=== PATIENT | female | born 1975 | race Caucasian/White ===

== ENCOUNTER 2017-07-21 10:38 | Emergency (ER) | payer OTHER ==
[2017-07-21 10:53] VITALS: BP 100/63; PULSE 75; TEMP 98.9; BMI 23.3
[2017-07-21] MEDS ORDERED: IBUPROFEN 400 MG TABLET (FP) PO ONE ×2 (12:59→13:08)
--- NOTE | 2017-07-21 12:59 | PDOC ---
History of Present Illness - General Chief Complaint: Injury Stated Complaint: RT HAND/FINGER INJURY Time Seen by Provider: 07/21/17 12:45 History Source: Patient Exam Limitations: No Limitations - History of Present Illness Initial Comments: 07/21/17 13:36 Patient is a 41-year-old female with no past medical history, who presents to the emergency department today complaining of right hand pain. Patient states she was lifting a laundry basket when she slipped and felt her thumb bent backwards. She states that she has a lot of swelling in her thumb and it is painful to the touch. Denies numbness and tingling in the fingers. Patient is right-hand dominant. Past History - Travel Traveled outside of the country in the last 30 days: No Close contact w/someone who was outside of country & ill: No - Past Medical History Allergies/Adverse Reactions: Allergies Allergy/AdvReac Type Severity Reaction Status Date / Time No Known Allergies Allergy Verified 07/21/17 10:46 Home Medications: Ambulatory Orders NK [No Known Home Medication] 07/21/17 COPD: No - Surgical History Abdominal Surgery: Yes (HERNIA) - Suicide/Smoking/Psychosocial Hx Smoking History: Never smoked Have you smoked in the past 12 months: No Information on smoking cessation initiated: No Hx Alcohol Use: No Drug/Substance Use Hx: No Substance Use Type: None Review of Systems - Review of Systems Able to Perform ROS?: Yes Comments:: 07/21/17 13:38 CONSTITUTIONAL: Absent: fever, chills, diaphoresis, generalized weakness, malaise, loss of appetite HEENT: Absent: rhinorrhea, nasal congestion, throat pain, throat swelling, difficulty swallowing, mouth swelling, ear pain, eye pain, visual Changes CARDIOVASCULAR: Absent: chest pain, loss of consciousness, palpitations, irregular heart rate, peripheral edema RESPIRATORY: Absent: cough, shortness of breath, dyspnea with exertion, orthopnea, wheezing, stridor, hemoptysis GASTROINTESTINAL: Absent: abdominal pain, abdominal distension, nausea, vomiting, diarrhea, constipation, melena, hematochezia GENITOURINARY: Absent: dysuria, frequency, urgency, hesitancy, hematuria, flank pain, genital pain MUSCULOSKELETAL: Present: swelling/pain to R thumb/thenar eminence. Absent: arthralgia, SKIN: Absent: rash, itching, pallor HEMATOLOGIC/IMMUNOLOGIC: Absent: easy bleeding, easy bruising, lymphadenopathy, frequent infections ENDOCRINE: Absent: unexplained weight gain, unexplained weight loss, heat intolerance, cold intolerance NEUROLOGIC: Absent: headache, focal weakness or paresthesias, dizziness, unsteady gait, seizure, mental status changes, bladder or bowel incontinence PSYCHIATRIC: Absent: anxiety, depression, suicidal or homicidal ideation, hallucinations. Is the patient limited Amharic proficient: No *Physical Exam - Vital Signs Last Vital Signs Temp Pulse Resp BP Pulse Ox 98.9 F 75 18 100/63 100 07/21/17 10:47 07/21/17 10:47 07/21/17 10:47 07/21/17 10:47 07/21/17 10:47 - Physical Exam Comments: 07/21/17 13:39 GENERAL: The patient is awake, alert, and fully oriented, in no acute distress. HEAD: Normal with no signs of trauma. EYES: Pupils equal, round and reactive to light, extraocular movements intact, sclera anicteric, conjunctiva clear. EXTREMITIES: Swelling to the R thenar eminence. TTP at the base of the first metacarple. Normal range of motion at all other joints. NEUROLOGICAL: Normal speech, normal gait. PSYCH: Normal mood, normal affect. SKIN: Warm, Dry, normal turgor, no rashes or lesions noted. Medical Decision Making - Medical Decision Making 07/21/17 13:40 Patient is a 41-year-old female no past medical history who presents emergency Department with 1 day of hand swelling. Most likely a muscular injury however will rule out fracture at this time. Ibuprofen for pain. Reevaluate 07/21/17 13:58 x-ray is negative. Will d/c home at this time with a finger splint. Most likely game keepers thumb. Will give ortho referral. Pt. understands all d.c instructions and all questions were answered at this time. *DC/Admit/Observation/Transfer Diagnosis at time of Disposition: Gamekeeper's thumb of right hand Qualifiers: Encounter type: initial encounter Qualified Code(s): S53.31XA - Traumatic rupture of right ulnar collateral ligament, initial encounter - Discharge Dispostion Disposition: HOME Condition at time of disposition: Good Admit: No - Referrals Referrals: Eyad Thakkar MD [Staff Physician] - - Patient Instructions Printed Discharge Instructions: DI for Ulnar Collateral Ligament Sprain of Thumb Additional Instructions: Te torciste el pulgar. Por favor, use la frula que se puso harrison las pr ximas 24-72 horas. Puede congelar la mano para ayudar a reducir la hinchazn. Por favor, tome ibuprofeno 800 mg 3 veces al da. Mantenga la mano elevada para reducir la hinchazn. Por favor chevy un seguimiento con ortopedia esta semana. Regrese al servicio de urgencias si tiene un empeoramiento del dolor, entumecimiento y hormigueo, debilidad de la mano o cualquier cambio en wang s ntomas. You sprained her thumb. Please wear the splint that was put on for the next 24- 72 hours. You may ice the hand to help reduce swelling. Please take ibuprofen 800 mg 3 times a day. Keep hand elevated to reduce swelling. Please follow-up with orthopedics this week. Return to the emergency department if you have worsening pain, numbness and tingling, weakness of your hand, or any changes in your symptoms. Print Language: LAO - Post Discharge Activity Forms/Work/School Notes: Back to Work
== END 2017-07-21 14:15 | disposition home or self-care (01) ==
LOC: JER 10:38 → JERFT 10:38
PROC: 2W3JX1Z Immobilization of Right Finger using Splint (ICD-10-PCS; principal; 2017-07-21)
DX: S63.418A Traumatic rupture of collateral ligament of other finger at metacarpophalangeal and interphalangeal joint, initial encounter (principal); W01.0XXA Fall on same level from slipping, tripping and stumbling without subsequent striking against object, initial encounter; Y93.E2 Activity, laundry; Y92.89 Other specified places as the place of occurrence of the external cause; Y99.8 Other external cause status
CPT/HCPCS: 29125; 73110-TC-RT; 73130-TC-RT; 99281-25

== ENCOUNTER 2018-04-10 08:26 | Emergency (ER) | payer OTHER ==
[2018-04-10 08:39] VITALS: BMI 21.6
--- NOTE | 2018-04-10 08:41 | PDOC ---
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 hstory of inguinal hernia with mesh repair in [facility] in 2013,2014,2016. 2 nights of sharp bilateral lower abdominal pain that radiates down to the R thigh pain rated 9/10 described as stabbing. pain left her unable to sleep exacerbated by walking. LNMP: 2 weeks. No dysuria, no vomiting, diarrhea, constipation + 1-[address] interpreter #[id number] <Mikaela Sanchez - Last Filed: 04/10/18 16:08> <Kyra Anderson - Last Filed: 04/10/18 16:34> - General Chief Complaint: Pain, Acute Stated Complaint: ABD PAIN Time Seen by Provider: 04/10/18 08:38 Past History - Past Medical History COPD: No - Surgical History Abdominal Surgery: Yes (HERNIA) - Suicide/Smoking/Psychosocial Hx Smoking History: Never smoked Have you smoked in the past 12 months: No Hx Alcohol Use: No Drug/Substance Use Hx: No Substance Use Type: None <Mikaela Sanchez - Last Filed: 04/10/18 16:08> <Kyra Anderosn - Last Filed: 04/10/18 16:34> - Past Medical History Allergies/Adverse Reactions: Allergies Allergy/AdvReac Type Severity Reaction Status Date / Time No Known Allergies Allergy Verified 04/10/18 08:30 Home Medications: Ambulatory Orders Ibuprofen 800 mg PO TID #30 tablet 07/21/17 *Physical Exam - Vital Signs Last Vital Signs Temp Pulse Resp BP Pulse Ox 98 F 78 16 99/67 100 04/10/18 08:27 04/10/18 08:27 04/10/18 08:27 04/10/18 08:27 04/10/18 08:27 <Mikaela Sanchez - Last Filed: 04/10/18 16:08> - Vital Signs Last Vital Signs Temp Pulse Resp BP Pulse Ox 98 F 78 16 99/67 100 04/10/18 08:27 04/10/18 08:27 04/10/18 08:27 04/10/18 08:27 04/10/18 10:58 <Kyra Anderson - Last Filed: 04/10/18 16:34> ED Treatment Course - LABORATORY CBC & Chemistry Diagram: 04/10/18 09:02 04/10/18 09:02 <Mikaela Sanchez - Last Filed: 04/10/18 16:08> - LABORATORY CBC & Chemistry Diagram: 04/10/18 09:02 04/10/18 09:02 - ADDITIONAL ORDERS Additional order review: Laboratory Results 04/10/18 04/10/18 04/10/18 10:44 09:02 09:02 PT with INR INR PTT (Actin FS) Sodium 141 Potassium 4.6 Chloride 109 H Carbon Dioxide 29 Anion Gap 4 L BUN 7 Creatinine 0.5 L Creat Clearance w eGFR > 60 Random Glucose 83 Calcium 9.2 Total Bilirubin 0.6 AST 10 L ALT 16 Alkaline Phosphatase 49 Total Protein 7.8 Albumin 3.8 Urine Color Urine Appearance Urine pH Ur Specific [place] Urine Protein Urine Glucose (UA) Urine Ketones Urine Blood Urine Nitrite Urine Bilirubin Urine Urobilinogen Ur Leukocyte Esterase Blood Type O POSITIVE O POSITIVE Antibody Screen Negative 04/10/18 04/10/18 09:02 09:02 PT with INR 13.20 H INR 1.12 H PTT (Actin FS) 30.2 Sodium Potassium Chloride Carbon Dioxide Anion Gap BUN Creatinine Creat Clearance w eGFR Random Glucose Calcium Total Bilirubin AST ALT Alkaline Phosphatase Total Protein Albumin Urine Color Colorless Urine Appearance Clear Urine pH 8.0 Ur Specific [place] 1.001 L Urine Protein Negative Urine Glucose (UA) Negative Urine Ketones Negative Urine Blood Negative Urine Nitrite Negative Urine Bilirubin Negative Urine Urobilinogen Negative Ur Leukocyte Esterase Negative Blood Type Antibody Screen 04/10/18 09:02 RBC 4.56 MCV 84.2 MCHC 31.4 L RDW 14.5 MPV 9.3 Neutrophils % 79.4 Lymphocytes % 13.6 Monocytes % 5.4 Eosinophils % 1.3 Basophils % 0.3 - RADIOLOGY Radiology Studies Ordered: Category Date Time Status TRANSVAGINAL ULTRASOUND US [US] Stat Ultrasound 04/10/18 13:16 Completed - Medications Given in the ED: ED Medications Discontinued Medications Generic Name Dose Route Start Last Admin Trade Name Freq PRN Reason Stop Dose Admin Acetaminophen 1,000 mg 04/10/18 10:03 04/10/18 10:07 Ofirmev Injection - IVPB 04/10/18 10:04 1,000 mg ONCE ONE Administration Ondansetron HCl 4 mg 04/10/18 09:09 04/10/18 09:21 Zofran Injection IVPUSH 04/10/18 09:10 4 mg ONCE ONE Administration <Kyra Anderson - Last Filed: 04/10/18 16:34> Medical Decision Making - Medical Decision Making 04/10/18 15:[address]: large uterus with fibroids TVUS ordered <Mikaela Sanchez - Last Filed: 04/10/18 16:08> *DC/Admit/Observation/Transfer - Discharge Dispostion Decision to Admit order: No <Mikaela Sanchez - Last Filed: 04/10/18 16:08> <JustinKyra - Last Filed: 04/10/18 16:34> Diagnosis at time of Disposition: Abdominal pain, Fibroid - Discharge Dispostion Disposition: HOME Condition at time of disposition: Stable - Referrals Referrals: Luis Kingston MD [Staff Physician] - Angel Mayers [Primary Care Provider] - - Patient Instructions Additional Instructions: You were seen in the ED for complaints of abdominal pain. In the ED you were evaluated with labwork and imaging. Your results were significant for uterine fibroids. There does not appear to be an acute need for immediate hospitalization. You are advised to follow up with your primary care physician within 1 week. You were given a referral to [facility] [employer], please follow up within 1 week. Take over the counter ibuprofen as needed for pain relief. Return to the ED immediately if you experience worsening abdominal pain, vaginal discharge, nonmenstrual vaginal bleeding. fevers, nausea, vomiting, diarrhea, constipation, dysuria or blood in the urine or stool. Usted fue visto en el servicio de urgencias por quejas de dolor abdominal. En el servicio de urgencias se le evalu con trabajo de laboratorio e imgenes. Patricia resultados fueron significativos para los fibromas uterinos. No parece venita johnny necesidad aguda de hospitalizacin inmediata. Se recomienda realizar un seguimiento con thomas mdico de atencin primaria dentro de johnny semana. Recibi johnny referencia para un obstetra / gineclogo, chevy un seguimiento dentro de johnny semana. Nickerson el control del ibuprofeno segn sea necesario para aliviar el dolor. Regrese a la iza de urgencias inmediatamente si experimenta un empeoramiento del dolor abdominal, flujo vaginal, sangrado vaginal no menstrual. fiebre, nuseas, vmitos, diarrea, estreimiento, disuria o luca en la orina o las heces. - Post Discharge Activity
[2018-04-10] MEDS ORDERED: ONDANSETRON 4 MG/2 ML VIAL IVPUSH ONE (09:09)
[2018-04-10] MEDS ORDERED: ONDANSETRON 4 MG/2 ML VIAL ONE (09:13)
[2018-04-10] MEDS ORDERED: SODIUM CHLORIDE 1,000 ML IV SCH (09:15)
[2018-04-10 09:23] LABS: URINE APPEARANCE CLEAR; URINE BILIRUBIN NEGATIVE (<2.0 mg/dL); URINE COLOR COLORLESS; URINE GLUCOSE (UA) NEGATIVE (NEGATIVE); URINE KETONE NEGATIVE (NEGATIVE); URINE LEUK ESTERASE NEGATIVE (NEGATIVE); URINE NITRITE NEGATIVE (NEGATIVE); URINE PROTEIN NEGATIVE (NEGATIVE); URINE UROBILINOGEN NEGATIVE mg/dL (0.2-1.0)
[2018-04-10 09:25] LABS: BASO % 0.3 % (0-2.0); EOS % 1.3 % (0-4.5); HEMATOCRIT 38.4 % (32.4-45.2); HEMOGLOBIN 12.1 GM/dL (10.7-15.3); LYMPH % 13.6 % (8-40); MCH 26.4 pg (25.7-33.7); MCHC 31.4 g/dl (32.0-36.0); MEAN CELL VOLUME 84.2 fl (80-96); MEAN PLT VOLUME 9.3 fl (7.5-11.1); MONO % 5.4 % (3.8-10.2); NEUT % 79.4 % (42.8-82.8); PLATELET COUNT 199 K/MM3 (134-434); RBC 4.56 M/mm3 (3.60-5.2); RDW 14.5 % (11.6-15.6); WHITE BLOOD COUNT 9.3 K/mm3 (4.0-10.0)
[2018-04-10 09:30] LABS: INR 1.12 (0.83-1.09); PROTHROMBIN TIME (PATIENT) 13.2 SEC (9.7-13.0)
[2018-04-10 09:32] LABS: ACTIVATED PTT 30.2 SECONDS (25.2-36.5)
[2018-04-10 09:41] LABS: ALBUMIN 3.8 g/dl (3.4-5.0); ALK PHOS 49 U/L (45-117); ANION GAP 4 MMOL/L (8-16); BILIRUBIN,TOTAL 0.6 mg/dL (0.2-1); BLOOD UREA NITROGEN 7 mg/dL (7-18); CALCIUM 9.2 mg/dL (8.5-10.1); CHLORIDE 109 mmol/L (98-107); CO2 29 mmol/L (21-32); CREATININE 0.5 mg/dL (0.55-1.3); GLUCOSE,RANDOM 83 mg/dL (74-106); POTASSIUM 4.6 mmol/L (3.5-5.1); SGOT/AST 10 U/L (15-37); SGPT/ALT 16 U/L (13-61); SODIUM 141 mmol/L (136-145); TOT PROT 7.8 g/dl (6.4-8.2)
[2018-04-10] MEDS ORDERED: ACETAMINOPHEN 1000 MG/100 ML VIAL (NON FORMULARY) IVPB ONE (10:03)
[2018-04-10] MEDS ORDERED: ACETAMINOPHEN INJECTION 100 ML IVPB ONE (10:05)
--- NOTE | 2018-04-10 11:03 | PDOC ---
Attending Attestation - Resident Resident Name: Mikaela Sanchez - ED Attending Attestation I have performed the following: I have examined & evaluated the patient, The case was reviewed & discussed with the resident, I agree w/resident's findings & plan, Exceptions are as noted - HPI HPI: 04/10/18 11:01 42yo F with h/o hernia repair in [place] her with c/o lower abd pain near area of her scar. reports nausea, no vomiting. no f/c no urinary complaints. no mod factors. no change to bm. no f/c. pain moderate. when she stands she thought she sees a bulge. pt states pain started 2 days ago, got stronger last night. 04/10/18 11:24 - Physicial Exam PE: 04/10/18 11:02 awake alert lungs clear bilaterally heart rrr no mrg abd soft, mild periincisional scar ttp. no plap hernia. no noted bulge. ext wwp no edema no calf tenderness. - Medical Decision Making 04/10/18 11:02 differential uti pyelo appy, recurrent hernia.plan ct a/p labs ua 04/10/18 11:22 04/10/18 16:34 tvus with fibroids. labs unremarkable. ct no hernia. 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 ,
[2018-04-10 16:48] VITALS: BP 103/58; PULSE 63; TEMP 98
== END 2018-04-10 16:49 | disposition home or self-care (01) ==
LOC: JER 08:26
PROC: 3E033NZ Introduction of Analgesics, Hypnotics, Sedatives into Peripheral Vein, Percutaneous Approach (ICD-10-PCS; principal; 2018-04-10)
PROC: 3E033GC Introduction of Other Therapeutic Substance into Peripheral Vein, Percutaneous Approach (ICD-10-PCS; 2018-04-10)
DX: R10.9 Unspecified abdominal pain (principal); D21.9 Benign neoplasm of connective and other soft tissue, unspecified
CPT/HCPCS: 36415; 74177-TC; 76830-TC; 80053; 81003; 85025; 85610; 85730; 86850; 86900; 86901; 87086; 96374; 96375; 99284-25; J0131; J7030

== ENCOUNTER 2018-10-22 10:39 | Emergency (ER) | payer OTHER ==
[2018-10-22 11:00] VITALS: BP 109/66; PULSE 81; TEMP 98.1; BMI 22.6
--- NOTE | 2018-10-22 12:40 | PDOC ---
History of Present Illness - General Chief Complaint: Pain, Acute Stated Complaint: LT. KNEE PAIN Time Seen by Provider: 10/22/18 12:13 History Source: Patient Exam Limitations: No Limitations - History of Present Illness Occurred: reports: yesterday Severity: reports: mild, moderate Pain Location: reports: lower extremity (left knww ) Method of Injury: Yes: unknown Modifying Factors: improves with: cold therapy, pain medication Loss of Consciousness: no loss of consciousness Associated Symptoms (Fall): denies symptoms Past History - Travel Traveled outside of the country in the last 30 days: No Close contact w/someone who was outside of country & ill: No - Past Medical History Allergies/Adverse Reactions: Allergies Allergy/AdvReac Type Severity Reaction Status Date / Time No Known Allergies Allergy Verified 10/22/18 10:57 Home Medications: Ambulatory Orders Naproxen [Naprosyn -] 500 mg PO BID #30 tablet 10/22/18 COPD: No - Surgical History Abdominal Surgery: Yes (HERNIA) - Reproductive History Therapeutic (s) & number: No - Immunization History Immunization Up to Date: Yes - Suicide/Smoking/Psychosocial Hx Smoking History: Never smoked Have you smoked in the past 12 months: No Hx Alcohol Use: No Drug/Substance Use Hx: No Substance Use Type: None Review of Systems - Review of Systems Able to Perform ROS?: Yes Is the patient limited Macanese proficient: Yes Constitutional: Yes: Symptoms Reported, See HPI, Malaise HEENTM: Yes: See HPI. No: Symptoms Reported Respiratory: No: Symptoms reported Musculoskeletal: Yes: Symptoms Reported, See HPI, Joint Pain, Joint Swelling ( left knee ), Muscle Pain Neurological: Yes: Symptoms reported All Other Systems: Reviewed and Negative *Physical Exam - Vital Signs Last Vital Signs Temp Pulse Resp BP Pulse Ox 98.1 F 81 18 109/66 100 10/22/18 10:58 10/22/18 10:58 10/22/18 10:58 10/22/18 10:58 10/22/18 10:58 - Physical Exam General Appearance: Yes: Nourished, Appropriately Dressed, Mild Distress HEENT: positive: ALVA Neck: positive: Supple Respiratory/Chest: positive: Lungs Clear, Normal Breath Sounds Musculoskeletal: negative: Normal Inspection Extremity: positive: Tender, Swelling. negative: Normal Range of Motion ( omitted range of motion to left knee, with positive ballottement, and tenderness along the medial collateral aspect of her knee. All is mobile, no crepitus or step-offs. Has no prepatellar tenderness or pretibial tenderness. 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 Patient understands x-ray may be taken at orthopedist but today due to a traumatic nature of knee swelling will hold until seen by orthopedist. *DC/Admit/Observation/Transfer Diagnosis at time of Disposition: Knee MCL sprain Qualifiers: Encounter type: initial encounter Laterality: left Qualified Code(s): S83.412A - Sprain of medial collateral ligament of left knee, initial encounter - Discharge Dispostion Disposition: HOME Condition at time of disposition: Stable Decision to Admit order: No - Referrals Referrals: Shravan Hutchinson DO [Staff Physician] - - Patient Instructions Printed Discharge Instructions: DI for Knee Sprain Additional Instructions: Rest, ice to area on and off for 15 minutes 4-6 times a day Avoid heavy lifting or exercise until pain and swelling is resolved or until further directed Keep area highly elevated to reduce swelling Use splints/Manuel wrap as directed Followup with orthopedist in one to 2 days if not improving, if significantly improved may wait one week for followup with orthopedist May use [id number] mg tablet every 12 hours as needed for pain - Post Discharge Activity Forms/Work/School Notes: Back to Work
== END 2018-10-22 12:52 | disposition home or self-care (01) ==
LOC: JERFT 10:39
PROC: 2W3RXYZ Immobilization of Left Lower Leg using Other Device (ICD-10-PCS; principal; 2018-10-22)
DX: S83.412A Sprain of medial collateral ligament of left knee, initial encounter (principal); X50.9XXA Other and unspecified overexertion or strenuous movements or postures, initial encounter; Y93.89 Activity, other specified; Y92.89 Other specified places as the place of occurrence of the external cause; Y99.8 Other external cause status
CPT/HCPCS: 99282-25

== ENCOUNTER → 2022-07-11 | Day surgery (SDC) | payer OTHER | END | disposition home or self-care (01) | LOC: FMAMMOTONE 07:49 | PROVIDERS: ATTEND Obstetrics & Gynecology | PROC: 0HBT3ZX Excision of Right Breast, Percutaneous Approach, Diagnostic (ICD-10-PCS; principal; 2022-07-11) | DX: N64.89 Other specified disorders of breast (principal); R92.0 Mammographic microcalcification found on diagnostic imaging of breast | CPT/HCPCS: 19081; 76098-TC-FY; 87899; 88305-TC; A4648 ==

== ENCOUNTER → 2022-09-16 | Day surgery (SDC) | payer OTHER ==
[~2022-09-16] MED LIST: BUPIVACAINE HCL/PF 0.25% (2.5MG/ML) 10 ML VIAL ONE; MIDAZOLAM HCL 2 MG/2 ML SINGLE DOSE VIAL ONE; PROPOFOL 20 ML ONE
== END | disposition home or self-care (01) ==
LOC: JRADUS-SUR 10:05
PROVIDERS: ATTEND Surgery Surgical Oncology
PROC: BH00ZZZ Plain Radiography of Right Breast (ICD-10-PCS; principal; 2022-09-16)
DX: N60.91 Unspecified benign mammary dysplasia of right breast (principal)
CPT/HCPCS: 19281; A4648

== ENCOUNTER 2022-09-18 05:18 | Day surgery (SDC) | payer OTHER ==
[2022-09-16 15:04] VITALS: BMI 24.2
[2022-09-18 07:31] VITALS: RESP 18
[2022-09-18] MEDS ORDERED: LIDOCAINE 1%/EPI 1:100000 (20 ML MULTI DOSE VIAL) IJ ONE ×2 (08:35→08:53)
[2022-09-18] MEDS ORDERED: BUPIVACAINE HCL/PF 0.25% (2.5MG/ML) 10 ML VIAL IJ ONE ×3 (08:35→08:53)
[2022-09-18] MEDS ORDERED: LACTATED RINGERS SOLUTION 1,000 ML IV SCH (09:30)
[2022-09-18] MEDS ORDERED: ONDANSETRON 4 MG/2 ML VIAL IVPUSH PRN (09:30)
[2022-09-18] MEDS ORDERED: oxyCODONE HCL 5 MG TABLET PO PRN (09:30)
[2022-09-18] MEDS ORDERED: KETOROLAC TROMETHAMINE 30 MG/1 ML VIAL IVPUSH PRN (09:31)
[2022-09-18] MEDS ORDERED: BUPIVACAINE HCL/PF 0.25% (2.5MG/ML) 10 ML VIAL ONE (09:33)
[2022-09-18] MEDS ORDERED: ACETAMINOPHEN 1000 MG/100 ML BAG IVPB ONE (10:01)
[2022-09-18] MEDS ORDERED: ACETAMINOPHEN INJECTION 100 ML IVPB ONE (10:01)
[2022-09-18] MEDS ORDERED: oxyCODONE HCL 5 MG TABLET ONE (10:51)
[2022-09-18 12:11] VITALS: BP 116/60; PULSE 68; TEMP 97.7
== END 2022-09-18 12:05 | disposition home or self-care (01) ==
LOC: JASU-SURG 05:18
PROVIDERS: ATTEND Surgery Surgical Oncology
PROC: 0HBT0ZX Excision of Right Breast, Open Approach, Diagnostic (ICD-10-PCS; principal; 2022-09-18 09:00)
DX: N60.11 Diffuse cystic mastopathy of right breast (principal)
CPT/HCPCS: 76098-TC-FY; 81025; 88307-TC; 94760

== ENCOUNTER 2023-08-22 09:26 | Emergency (ER) | payer OTHER ==
[2023-08-22 09:34] VITALS: BP 125/88; PULSE 89; RESP 18; TEMP 98.1; BMI 25.2
[2023-08-22] MEDS ORDERED: LIDOCAINE 4% PATCH TP ONE (09:48)
[2023-08-22] MEDS ORDERED: CYCLOBENZAPRINE HCL 10 MG TABLET (FP) ONE (09:48)
[2023-08-22] MEDS ORDERED: KETOROLAC TROMETHAMINE 30 MG/1 ML VIAL ONE (09:48)
[2023-08-22] MEDS ORDERED: ACETAMINOPHEN 500 MG TABLET (FP) ONE (09:48)
[2023-08-22] MEDS: ACETAMINOPHEN 500 MG TABLET (FP) PO ONE (09:57)
[2023-08-22] MEDS: KETOROLAC TROMETHAMINE 30 MG/1 ML VIAL IM ONE (09:57)
[2023-08-22] MEDS: CYCLOBENZAPRINE HCL 10 MG TABLET (FP) PO ONE (09:57)
[2023-08-22] MEDS: LIDOCAINE 4% PATCH TP ONE (09:57)
[2023-08-22] MEDS ORDERED: LIDOCAINE PATCH REMOVAL MC SCH (22:00)
== END 2023-08-22 10:20 | disposition home or self-care (01) ==
LOC: JERFT 09:26
PROC: 3E0233Z Introduction of Anti-inflammatory into Muscle, Percutaneous Approach (ICD-10-PCS; principal; 2023-08-22)
DX: M54.42 Lumbago with sciatica, left side (principal); M79.605 Pain in left leg; M79.10 Myalgia, unspecified site
CPT/HCPCS: 99284-25

== ENCOUNTER 2023-10-02 04:30 | Day surgery (SDC) | payer OTHER ==
[2023-09-30 13:52] VITALS: BMI 26.2
[2023-10-02 10:38] VITALS: TEMP 97.7
[2023-10-02 10:41] VITALS: BP 102/58; PULSE 67; RESP 13
== END 2023-10-02 10:41 | disposition home or self-care (01) ==
LOC: JASU-ENDO 04:30
PROVIDERS: ATTEND Internal Medicine Gastroenterology
PROC: 0DB78ZX Excision of Stomach, Pylorus, Via Natural or Artificial Opening Endoscopic, Diagnostic (ICD-10-PCS; 2023-10-02)
PROC: 0DB68ZX Excision of Stomach, Via Natural or Artificial Opening Endoscopic, Diagnostic (ICD-10-PCS; principal; 2023-10-02 09:40)
DX: K29.50 Unspecified chronic gastritis without bleeding (principal); B96.81 Helicobacter pylori [H. pylori] as the cause of diseases classified elsewhere
CPT/HCPCS: 81025; 88305-TC; 88342-TC